=== PATIENT | female | born 1990 | race Caucasian/White ===

== ENCOUNTER 2020-09-02 08:57 | Outpatient (CLI) | payer BC | END 2020-09-02 08:58 | disposition home or self-care (01) | LOC: BICRAD 08:57 | PROVIDERS: ATTEND Physician Assistant Medical | DX: K59.00 Constipation, unspecified (principal); R14.0 Abdominal distension (gaseous) | CPT/HCPCS: 74019 ==

== ENCOUNTER 2022-04-14 09:24 | Outpatient (CLI) | payer BC ==
[2022-04-14] MEDS ORDERED: Gadobenate Dimeglumine 529 MG/1 ML (20ML VIAL) ONE (09:36)
== END 2022-04-14 09:25 | disposition home or self-care (01) ==
LOC: SCSMRI 09:24
PROVIDERS: ATTEND Internal Medicine Gastroenterology
DX: R16.0 Hepatomegaly, not elsewhere classified (principal); K59.00 Constipation, unspecified; R14.0 Abdominal distension (gaseous); R63.5 Abnormal weight gain; K76.9 Liver disease, unspecified
CPT/HCPCS: 74183; A9577

== ENCOUNTER 2023-08-10 08:42 | Outpatient (CLI) | payer BC ==
[2023-08-10] MEDS ORDERED: Magnevist 469MG/ML 20 ML VIAL ONE (09:37)
== END 2023-08-10 08:43 | disposition home or self-care (01) ==
LOC: MRI 08:42
PROVIDERS: ATTEND Internal Medicine Gastroenterology
DX: K76.9 Liver disease, unspecified (principal); R16.0 Hepatomegaly, not elsewhere classified
CPT/HCPCS: 74183